=== PATIENT | male | born 1950 | race Caucasian/White ===

== ENCOUNTER → 2017-06-04 | Outpatient (CLI) | payer OTHER, BC ==
--- NOTE | ~2017-06-04 | 2DMMODE ---
[facility] [address] [place] [address] 2 D/M-MODE ECHOCARDIOGRAM Name: SHANNA ARAUJO Room #: [facility]#: [id number] Admission: 06/04/17 Attend Phys: Bogdan Perrin Discharge: Date of : 48 Date of Service: 06/04/17 1124 Report #: [id number] THIS REPORT FOR: //name// APPROVED REPORT Study performed: 06/04/2017 08:45:01 EXAM: Comprehensive 2D, Doppler, and color-flow Echocardiogram Patient Location: Out-Patient Status: routine BSA: 2.08 HR: 67 bpm BP: 174/103 mmHg Rhythm: NSR Other Information Study Quality: Good Indications Palpitations 2D Dimensions RVDd: 40.10 mm LVEF(%): 83.28 (>50%) IVSd: 11.40 (7-11mm) LVOT Diam: 20.79 (18-24mm) LVDd: 55.99 mm PWd: 9.58 (7-11mm) Ascending Ao: 35.92 (22-36mm) LVDs: 26.45 (25-40mm) Aortic Root: 33.45 mm Dailey's LVEF: 83.28 % Volumes Left Atrial Volume (Systole) Single Plane 4CH: 44.53 mL Single Plane 2CH: 51.41 mL LA ESV Index: 25.00 mL/m2 Aortic Valve AoV Peak Jung.: 2.75 m/s AO Peak Gr.: 30.21 mmHg LVOT Max P.89 mmHg AO Mean Gr.: 15.24 mmHg AO V2 Mean: 1.82 m/s LVOT Max V: 1.40 m/s AO V2 VTI: 57.99 cm CHERRY Vmax: 1.74 cm2 Mitral Valve [facility] [place] [address] 2 D/M-MODE ECHOCARDIOGRAM Name: SHANNA ARAUJO [facility] [id number] Admission: 06/04/17 Attend Phys: Bogdan Perrin Discharge: Date of : 48 Date of Service: 06/04/17 1124 Report #: [id number] E/A Ratio: 1.2 MV Decel. Time: 224.14 ms MV E Max Jung.: 1.21 m/s MV A Jung.: 0.98 m/s MV PHT: 65.00 ms IVRT: 55.36 ms Pulmonary Valve PV Peak Jung.: 1.13 m/s PV Peak Gr.: 5.09 mmHg Pulmonary Vein P Vein S: 0.87 m/s P Vein A: 0.36 m/s P Vein D: 0.72 m/s P Vein A Dur.: 193.8 msec P Vein S/D Ratio: 1.21 Tricuspid Valve TR Peak Jung.: 3.06 m/s RAP Estimate: 5.00 mmHg TR Peak Gr.: 37.41 mmHg PA Pressure: 42.00 mmHg Left Ventricle The left ventricle is normal size. There is normal LV segmental wall motion. There is normal left ventricular wall thickness. The left ventricular systolic function is normal. LVEF is 60-65%. Grade II - pseudonormal filling dynamics. Right Ventricle Right ventricle is grossly normal in size. The right ventricular systolic function is normal. Atria The left atrium size is normal. Right atrium is at the upper limits of normal. Aortic Valve The aortic valve is sclerotic. Mild aortic regurgitation. No hemodynamically significant valvular aortic stenosis. Mitral Valve The mitral valve is normal in structure. Mitral valve leaflets are mildly thickened. Mild mitral regurgitation. No evidence of mitral valve stenosis. Tricuspid Valve The tricuspid valve is normal in structure. There is trace to mild tricuspid regurgitation. The right atrial pressure is estimated at 5 [facility] [address] [place] [address] 2 D/M-MODE ECHOCARDIOGRAM Name: SHANNA ARAUJO [id number] Admission: 06/04/17 Attend Phys: Bogdan Perrin Discharge: Date of : 48 Date of Service: 06/04/17 1124 Report #: [id number]. There is moderate pulmonary hypertension, estimated PAP of 42mmHg. Pulmonic Valve The pulmonary valve is normal in structure. Trace pulmonic regurgitation. Great Vessels The aortic root is normal in size. The ascending aorta is normal in size. IVC is normal in size and collapses >50% with inspiration. Pericardium There is no pericardial effusion. <Conclusion> The left ventricle is normal size. The left ventricular systolic function is normal. The left atrium size is normal. The aortic valve is sclerotic. Mild aortic regurgitation. Mild mitral regurgitation. There is trace to mild tricuspid regurgitation. The right atrial pressure is estimated at 5 mmHg. There is moderate pulmonary hypertension, estimated PAP of 42mmHg. <ELECTRONICALLY SIGNED> By: Karlos Soni MD 06/04/17 1124 1124 1124 Karlos Soni MD /INF
== END ==
LOC: CV 08:35
DX: I08.0 Rheumatic disorders of both mitral and aortic valves (principal); I27.2 Other secondary pulmonary hypertension; G45.9 Transient cerebral ischemic attack, unspecified; R00.2 Palpitations

== ENCOUNTER → 2020-09-06 | Outpatient (CLI) | payer OTHER, BC | LOC: SJCVC 09:39 | PROVIDERS: ATTEND Internal Medicine Cardiovascular Disease | DX: I48.91 Unspecified atrial fibrillation (principal); R00.1 Bradycardia, unspecified; N18.30 Chronic kidney disease, stage 3 unspecified; Z79.899 Other long term (current) drug therapy ==

== ENCOUNTER → 2021-09-05 | Outpatient (CLI) | payer OTHER, BC | LOC: SJCVC 09:31 | PROVIDERS: ATTEND Internal Medicine Cardiovascular Disease | DX: R94.31 Abnormal electrocardiogram [ECG] [EKG] (principal); R00.1 Bradycardia, unspecified; I25.10 Atherosclerotic heart disease of native coronary artery without angina pectoris; Z79.82 Long term (current) use of aspirin; Z79.899 Other long term (current) drug therapy; Z88.8 Allergy status to other drugs, medicaments and biological substances; E55.9 Vitamin D deficiency, unspecified; G45.9 Transient cerebral ischemic attack, unspecified; I12.9 Hypertensive chronic kidney disease with stage 1 through stage 4 chronic kidney disease, or unspecified chronic kidney disease; N18.30 Chronic kidney disease, stage 3 unspecified; J32.9 Chronic sinusitis, unspecified; C64.9 Malignant neoplasm of unspecified kidney, except renal pelvis; I65.29 Occlusion and stenosis of unspecified carotid artery; Z98.890 Other specified postprocedural states; I48.91 Unspecified atrial fibrillation ==